=== PATIENT | male | born 1945 | race Caucasian/White ===

== ENCOUNTER 2020-05-16 13:42 | Emergency (ER) | payer MEDICARE, OTHER ==
[2020-05-16 13:57] VITALS: BP 138/79
[2020-05-16] MEDS ORDERED: DIPH/PERTUSS(ACELL)/TETANUS VAC/PF 0.5 ML SYR (>=10YO) IM ONE (14:03)
--- NOTE | 2020-05-16 14:06 | ER Document Report ---
HPI - HPI Time Seen by Provider: 05/16/20 14:00 Pain Level: 1 Context: Patient is a 75-year-old male who presents emergency department with a chief complaint of a cat bite to his right hand. The cat is up-to-date on his rabies vaccine. This is the patient's cat. States this happened yesterday. He noticed some swelling yesterday. This morning he was able to express some purulent drainage from his right hand at the bite site. Denies any fever, body aches or chills. - ROS Systems Reviewed and Negative: Yes All other systems reviewed and negative - CONSTITUTIONAL Constitutional: DENIES: Fever, Chills - CARDIOVASCULAR Cardiovascular: DENIES: Chest pain - RESPIRATORY Respiratory: DENIES: Trouble Breathing, Coughing - MUSCULOSKELETAL Musculoskeletal: REPORTS: Extremity pain, Swelling - DERM Skin Color: Normal Skin Problems: None, Rash, Puncture Wound - cat bite Past Medical History - Social History Smoking Status: Former Smoker Family History: Reviewed & Not Pertinent - Past Medical History Cardiac Medical History: Denies: Hx Coronary Artery Disease, Hx Heart Attack, Hx Hypertension Pulmonary Medical History: Denies: Hx Asthma, Hx Bronchitis, Hx COPD, Hx Pneumonia Neurological Medical History: Denies: Hx Cerebrovascular Accident, Hx Seizures GI Medical History: Denies: Hx Hepatitis, Hx Hiatal Hernia, Hx Ulcer Musculoskeletal Medical History: Denies Hx Arthritis Infectious Medical History: Denies: Hx Hepatitis Past Surgical History: Denies: Hx Open Heart Surgery, Hx Pacemaker - Immunizations Hx Diphtheria, Pertussis, Tetanus Vaccination: No Vertical Provider Document - CONSTITUTIONAL Agree With Documented VS: Yes Exam Limitations: No Limitations General Appearance: No Apparent Distress - INFECTION CONTROL TRAVEL OUTSIDE OF THE [place] IN LAST 30 DAYS: No - HEENT HEENT: Atraumatic, Normocephalic, PERRLA - NECK Neck: Normal Inspection - RESPIRATORY Respiratory: No Respiratory Distress - CARDIOVASCULAR Cardiovascular: Regular Rate, Regular Rhythm Pulses: Normal: Radial - MUSCULOSKELETAL/EXTREMETIES Musculoskeletal/Extremeties: FROM - NEURO Level of Consciousness: Awake, Alert, Appropriate - DERM Integumentary: Warm, Dry, Rash - at cat bite site Course - Re-evaluation Re-evalutation: 05/16/20 14:12 Patient will be started on Augmentin. He was updated and on his tetanus vaccine. He will follow up with his primary care provider. Patient able to flex and extend all digits with no difficulty. Follow-up precautions were given. Verbal discharge instructions were given to the patient. They verbalized understanding. They are stable for discharge. - Vital Signs Vital signs: Temp Pulse Resp BP Pulse Ox 98.2 F 65 20 138/79 H 98 05/16/20 13:55 05/16/20 13:55 05/16/20 13:55 05/16/20 13:55 05/16/20 13:55 - Laboratory Results Critical Laboratory Results Reviewed: No Critical Results - Radiology Results Critical Radiology Results Reviewed: No Critical Results Discharge - Discharge Clinical Impression: Cat bite Qualifiers: Encounter type: initial encounter Qualified Code(s): W55.01XA - Bitten by cat, initial encounter Condition: Stable Disposition: HOME, SELF-CARE Instructions: Tetanus Immunization Given ([facility]) Additional Instructions: Please monitor very closely for any signs of infection from your cat bite including spreading redness from the area, pus from the wound, or worsening pain. Clean the area twice daily with soap and water and then apply topical antibiotic ointment. Please take all the antibiotics that you were prescribed until they are gone. Follow-up with your primary care physician as needed. Prescriptions: Amoxicillin/Potassium Clav [Augmentin 875-125 Tablet] 1 tab PO BID #14 tablet Referrals: NIC CALDERON PA-C [Primary Care Provider] - Follow up in 3-5 days
--- OUTSIDE RECORDS SUMMARY | 2020-05-18 10:43 | XMS REPORT ---
:1945 Author Organization [facility] Address [facility] [place] [address] [place] [address] Care Team Providers Name Role Phone Unavailable Unavailable Unavailable Allergies, Adverse Reactions, Alerts This patient has no known allergies or adverse reactions. Medications This patient has no known medications. Problems This patient has no known problems. Procedures This patient has no known procedures. Results This patient has no known results. Social History This patient has no known social history. Vital Signs This patient has no known vital signs.
== END 2020-05-16 14:14 | disposition home or self-care (01) ==
LOC: ER 13:42
DX: S61.451A Open bite of right hand, initial encounter (principal); W55.01XA Bitten by cat, initial encounter; R21 Rash and other nonspecific skin eruption; Z87.891 Personal history of nicotine dependence; Z23 Encounter for immunization
CPT/HCPCS: 90471; 90715; 99283